=== PATIENT | female | born 1945 | race Caucasian/White ===

== ENCOUNTER 2024-08-07 14:41 | Emergency (ER) | payer OTHER ==
[~2024-08-07] VITALS: Ht 167.6 cm; Wt 91.0 kg
[2024-08-07] MEDS: LIDOCAINE 1% MDV 20ML VIAL SC ONE (19:30)
[2024-08-07] MEDS: BOOSTRIX VACCINE (TETANUS/DIPHTH/ACEL. PERTUSSIS) 0.5ML SYR IM.IMMUN ONE (20:19)
[2024-08-07] MEDS: NEOSPORIN TOP OINT 15GM TOP ONE (20:19)
[2024-08-07] MEDS ORDERED: CEPH500C PO (20:25)
[2024-08-07] MEDS: CEPHALEXIN 500 MG CAP PO ONE (20:25)
[2024-08-07 20:31] VITALS: BP 143/95; TEMP 96.8; O2SAT 97
== END 2024-08-07 20:40 | disposition home or self-care (01) ==
LOC: M ED 14:41
DX: S61.216A Laceration without foreign body of right little finger without damage to nail, initial encounter (principal); Y92.019 Unspecified place in single-family (private) house as the place of occurrence of the external cause; Y93.9 Activity, unspecified; Y99.9 Unspecified external cause status; E11.9 Type 2 diabetes mellitus without complications; I10 Essential (primary) hypertension; E03.9 Hypothyroidism, unspecified; F10.10 Alcohol abuse, uncomplicated; Z79.2 Long term (current) use of antibiotics; Z23 Encounter for immunization